=== PATIENT | male | born 1945 | race Caucasian/White ===

== ENCOUNTER 2021-08-03 08:48 | Outpatient (CLI) | payer MEDICARE | END 2021-08-03 08:49 | disposition home or self-care (01) | LOC: CSHCT 08:48 | PROVIDERS: ATTEND Internal Medicine Gastroenterology | DX: R10.84 Generalized abdominal pain (principal); R19.7 Diarrhea, unspecified; K21.9 Gastro-esophageal reflux disease without esophagitis | CPT/HCPCS: 74175; 82565 ==